=== PATIENT | male | born 1925 | race Caucasian/White ===

== ENCOUNTER → 2016-12-18 | Outpatient (CLI) | payer MEDICARE, OTHER ==
[~2016-12-18] MED LIST: BENICAR HCT 401 EAC1 PO; GLUCOSAMINE CH1 EAC3 PO; LIPITOR10 MG PO; SYNTHROID25 MCG PO; TOPROL XL 5050 MG PO
--- NOTE | 2016-12-27 10:10 | NUR ---
1010 Spoke to patients nurse Boss, no identified needs - has had a catheter before.
== END | disposition disaster alternative care site (69) ==
LOC: GRAD 11:00
DX: R79.89 Other specified abnormal findings of blood chemistry (principal); N28.89 Other specified disorders of kidney and ureter

== ENCOUNTER → 2017-04-10 | Day surgery (SDC) | payer MEDICARE, OTHER ==
[~2017-04-10] VITALS: Ht 177.8 cm; Wt 78.2 kg
--- NOTE | ~2017-04-10 | OR ---
PATIENT'S NAME: MOISES SALEH [facility] AGE: 89 Y [address] ROOM: [place] [id number] LOCATION: [facility] [place] ADMIT DATE: 04/10/2017 OR/Procedure Report DISCHARGE DATE: FAMILY PHYSICIAN: Shiva Zamorano MD ATTENDING PHYSICIAN: Linda Villarreal SURGEON: Linda Villarreal MD HOSPITALITY DIRECTOR: DATE OF PROCEDURE: 04/10/2017 PREOPERATIVE DIAGNOSIS: Carcinoma of the bladder. POSTOPERATIVE DIAGNOSIS: No recurrence. PROCEDURE: Cystoscopy. DESCRIPTION OF PROCEDURE: After adequate anesthesia, he was prepped and draped. A 21 ACMI cystoscope was passed. Anterior urethra was normal. Prostatic fossa was opened. Examination of the bladder revealed a scarred area over the left side of the bladder from his previous resection, but there was no recurrent transitional cell carcinoma. The remaining bladder was also normal with no tumors, stones, or inflammation. He was then accompanied to the recovery area. LINDA VILLARREAL MD EKL/modl /[id number] d: 04/10/17 0816 t: 04/11/17 0434, OPERATIVE SUMMARY
--- NOTE | ~2017-04-10 | HP ---
PATIENT'S NAME: MOISES SALEH [facility] AGE: 89 Y [address] ROOM: [place] [id number] LOCATION: [facility] [place] ADMIT DATE: 04/10/2017 History & Physical DISCHARGE DATE: FAMILY PHYSICIAN: Shiva Zamorano MD ATTENDING PHYSICIAN: Linda Villarreal DATE OF SERVICE: HISTORY: This is an 89-year-old male, who has an elevated creatinine and he was evaluated by Dr. Quinn and found to have a mass in the left side of the bladder. 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 Over the left hemitrigone, there was a large bladder tumor, which was resected transurethrally. The remaining bladder was unremarkable. He then received a course of BCG and seen now for followup cystoscopy and biopsies. 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 At that time, he had a T2 [place] 6. His PSA is slightly increased and his last PSA was 0.9. PAST MEDICAL HISTORY: Illnesses: 1. Hypertension. 2. Hypercholesteremia. Operations: 1. Cataracts. 2. As above. ALLERGIES: NONE KNOWN. PHYSICAL EXAMINATION: GENERAL: A well-developed, well-nourished male. CHEST: Clear to auscultation. HEART: Normal sinus rhythm. ABDOMEN: Soft with no palpable masses. : Normal penis. Testicles are normal. Prostatic fossa is empty. RECTAL: Negative. PATIENT'S NAME: MOISES SALEH [facility] AGE: 89 Y [address] ROOM: [place] [id number] LOCATION: [facility] [place] ADMIT DATE: 04/10/2017 History & Physical DISCHARGE DATE: FAMILY PHYSICIAN: Shiva Zamorano MD ATTENDING PHYSICIAN: Linda Villarreal IMPRESSION: 1. Transitional cell carcinoma of the bladder. 2. Adenocarcinoma of the prostate. 3. Azotemia. PLAN: As above. LINDA VILLARREAL MD EKL/modl /[id number] D: [id number] T: [id number] HISTORY & PHYSICAL
[2017-04-10 06:11] LABS: BASOPHIL % 0.5 %; EOSINOPHIL # 0.1 K/uL (0.0-0.5); EOSINOPHIL % 0.9 %; HEMATOCRIT 41.6 % (33.0-50.0); HEMOGLOBIN 13.9 g/dL (11.0-16.0); IMMATURE GRANULOCYTE % 0.4 %; LYMPHOCYTE # 2.6 K/uL (0.8-4.0); LYMPHOCYTE % 33.6 %; MCH 32.1 pg (27.0-34.0); MCHC 33.4 gm/dL (32.0-36.5); MCV 96.1 fl (83.0-98.0); MONOCYTE % 13.4 %; MPV 10.8 fl (9.4-12.4); NEUTROPHIL # (ANC) 3.9 K/uL (1.4-9.0); NEUTROPHIL % 51.2 %; NRBC % 0 /100WBC (0-0.00); PLATELET COUNT 181 K/uL (150-450); RBC 4.33 M/uL (3.50-5.50); RDW-CV 14.2 % (11.9-14.6); WBC 7.6 K/uL (4.0-11.0)
[2017-04-10 06:28] LABS: ALBUMIN 3.5 gm/dL (3.5-5.0); ANION GAP 11.5 (10.0-19.0); CALCIUM 8.3 mg/dL (8.5-10.5); CREATININE 2.1 mg/dL (0.6-1.3); POTASSIUM 3.5 mMol/L (3.7-5.1); TOTAL BILIRUBIN 0.8 mg/dL (0.0-1.5); TOTAL PROTEIN 7.1 g/dL (6.0-8.4)
== END ==
LOC: GPOC 04-09 17:00 → GSDC 05:13 → GPOC 05:30
PROVIDERS: Urology
PROC: 0TJB8ZZ Inspection of Bladder, Via Natural or Artificial Opening Endoscopic (ICD-10-PCS; principal; 2017-04-10)
DX: C67.9 Malignant neoplasm of bladder, unspecified (principal); I10 Essential (primary) hypertension; E78.00 Pure hypercholesterolemia, unspecified; R79.89 Other specified abnormal findings of blood chemistry; Z98.49 Cataract extraction status, unspecified eye; Z85.46 Personal history of malignant neoplasm of prostate
CPT/HCPCS: J2001; J7120